=== PATIENT | male | born 2000 | race Caucasian/White ===

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

== ENCOUNTER 2019-07-07 04:59 | Emergency (ER) | payer SELFPAY ==
[~2019-07-07] VITALS: Ht 172.7 cm; Wt 72.6 kg
[~2019-07-07 04:59] MED LIST: CEPH-264 PO; DOXY100C2 PO
[2019-07-07 05:32] VITALS: BP 127/63
[2019-07-07] MEDS ORDERED: CEPH-264 PO (05:49)
[2019-07-07] MEDS ORDERED: IBUP-1060 PO (05:49)
[2019-07-07] MEDS ORDERED: HYDR30CR61 TP (05:49)
[2019-07-07] MEDS ORDERED: MAGN296S9 PO (05:49)
--- NOTE | 2019-07-07 05:50 | PHYS DOC ---
Past Medical History Past Medical History: No Pertinent History Past Surgical History: Appendectomy Alcohol Use: None Drug Use: Marijuana Adult General Chief Complaint Chief Complaint: ABSCESS HPI HPI Patient is a 19 year old male who presents with complaining of abscess. Patient states he has had painful spot anal area for the last 4 days that gradually getting worse. Patient denies drainage of pus, fever and chills, vomiting and diarrhea, abdominal pain. Patient states he did not have bowel movement for the last 4 days. Patient state he had groin abscesses previously. Review of Systems Review of Systems Constitutional: Denies fever or chills [] Eyes: Denies change in visual acuity, redness, or eye pain [] HENT: Denies nasal congestion or sore throat [] Respiratory: Denies cough or shortness of breath [] Cardiovascular: No additional information not addressed in HPI [] GI: Denies abdominal pain, nausea, vomiting, bloody stools or diarrhea [] : Denies dysuria or hematuria [] Musculoskeletal: Denies back pain or joint pain [] Integument: Denies rash, reports skin lesions [] Neurologic: Denies headache, focal weakness or sensory changes [] Endocrine: Denies polyuria or polydipsia [] All other systems were reviewed and found to be within normal limits, except as documented in this note. Allergies Allergies Allergies Coded Allergies Type Severity Reaction Last Updated Verified No Known Drug Allergies 09/04/17 No Physical Exam Physical Exam Constitutional: Well developed, well nourished, mild distress, non-toxic appearance. [] HENT: Normocephalic, atraumatic. Eyes: PERRLA, EOMI, conjunctiva normal, no discharge. [] Neck: Normal range of motion, no tenderness, supple, no stridor. [] Cardiovascular:Heart rate regular rhythm, no murmur [] Lungs & Thorax: Bilateral breath sounds clear to auscultation [] Abdomen: Bowel sounds normal, soft, no tenderness, no masses, no pulsatile masses. Inspection of the anal area with present of drilling superintendent showed 80 of cellulitis at 7:00 without fluctuation with mild tenderness. Patient refuses digital exam of rectum. Skin: Warm, dry, no erythema, no rash. [] Back: No tenderness, no CVA tenderness. [] Extremities: No tenderness, no cyanosis, no clubbing, ROM intact, no edema. [] Neurologic: Alert and oriented X 3, no focal deficits noted. [] Psychologic: Affect normal, judgement normal, mood normal. [] EKG EKG [] Radiology/Procedures Radiology/Procedures [] Course & Med Decision Making Course & Med Decision Making Evaluation of patient in ER showed 19-year-old male patient presented to cellulitis of anal area and constipation. Patient was advised to take sitz bath several times a day and prescribed medication including cephalexin,Anusol, magnesium citrate and ibuprofen and return in 48 hours if not getting better. I've spoken with the patient and/or caregivers. I've explained the patient's condition, diagnosis and treatment plan based on information available to me at this time. I've answered the patient's and/or caregivers questions and addressed any concerns. The patient and/or caregivers have a good understanding the patient's diagnosis, condition and treatment plan as can be expected at this point. Vital signs have been stabilized. The patient's condition is stable for discharge from the emergency department. The patient will pursue further outpatient evaluation with her primary care provider or other designated consulting physician as outlined in the discharge instructions. Patient and/or caregivers are agreeable to this plan of care and follow-up instructions have been explained in detail. The patient and/or caregivers have received these instructions in written format and expressed understanding of these discharge instructions. The patient and her caregivers are aware that if any significant change in condition or worsening of symptoms should prompt him to immediately return to this of the closest emergency d epartment. If an emergent department is not readily available I would encourage him to call 911. Tania Disclaimer Dragon Disclaimer This electronic medical record was generated, in whole or in part, using a voice recognition dictation system. Departure Departure Impression: Primary Impression: Perianal cellulitis Additional Impression: Constipation Disposition: HOME, SELF-CARE (at 0 [phone]) Referrals: JAQUELIN LEON MD (PCP) Patient Instructions: Cellulitis, Constipation, Adult, Sitz Bath Additional Instructions: Drink plenty of liquids Follow-up with your primary care physician in 2-3 days Return to ER if not getting better Take sitz baths several times a day Scripts Magnesium Citrate (MAGNESIUM CITRATE) 296 Ml Solution 296 ML PO ONCE for constipation, #296 ML Drink half of the bottle every 12 hours for constipation Prov: JIMI WEAVER MD 07/07/19 Cephalexin (KEFLEX) 500 Mg Capsule 2 CAP PO Q12HR, #28 CAP Prov: JIMI WEAVER MD 07/07/19 Ibuprofen (IBUPROFEN) 800 Mg Tablet 800 MG PO PRN Q8HRS PRN for INFLAMMATION, #20 TAB Prov: JIMI WEAVER MD 07/07/19 Hydrocortisone (ANUSOL-HC) 30 Gm Cream..g. 1 EDER TP BID, #30 GM 1 Refill Prov: JIMI WEAVER MD 07/07/19 Problem Qualifiers Additional Impression: Constipation Constipation type: unspecified constipation type Qualified Codes: K59.00 - Constipation, unspecified JIMI WEAVER MD Jul 07, 2019 05:49
== END 2019-07-07 06:00 | disposition home or self-care (01) ==
LOC: ER 04:59
DX: K61.0 Anal abscess (principal); K59.00 Constipation, unspecified; Z90.89 Acquired absence of other organs
CPT/HCPCS: 99283